=== PATIENT | male | born 1955 | race Caucasian/White ===

== ENCOUNTER 2017-10-08 08:08 | Day surgery (SDC) | payer OTHER ==
[~2017-10-08 08:08] MED LIST: CEFAZOLIN 2 GM/50 ML (PMX) 50 ML IVPB; TRANEXAMIC ACID 1,000 MG in DEXTROSE 5% 100 ML IVPB; TRANEXAMIC ACID 1,000 MG in SOD CHLORIDE 0.9% 100 ML IVPB
[2017-10-08] MEDS: DEXAMETHASONE 1 MG TAB PO (09:00)
[2017-10-08] MEDS: traMADol 50 MG TAB PO (09:00)
[2017-10-08] MEDS ORDERED: NEOSTIGMINE 3 MG/3 ML SYRINGE (10:33)
[2017-10-08] MEDS ORDERED: GLYCOPYRROLATE 0.4 MG INJ (10:33)
[2017-10-08] MEDS ORDERED: ROCURONIUM 50 MG INJ (10:33)
[2017-10-08] MEDS ORDERED: ONDANSETRON 4 MG INJ (10:33)
[2017-10-08] MEDS ORDERED: MIDAZOLAM 1 MG/ML 2 ML INJ (10:33)
[2017-10-08] MEDS ORDERED: CEFAZOLIN 1 GM INJ (10:33)
[2017-10-08] MEDS ORDERED: DEXAMETHASONE 4 MG/ML 1 ML INJ (10:33)
[2017-10-08] MEDS ORDERED: ROPIVACAINE 0.5 % 30 ML VIAL (10:33)
[2017-10-08] MEDS ORDERED: PROPOFOL 20 ML (10:33)
[2017-10-08] MEDS ORDERED: FENTAnyl 50 MCG/ML VIAL (10:33)
[2017-10-08] MEDS ORDERED: LIDOCAINE 1%/EPI 30 ML INJ (11:32)
[2017-10-08] MEDS ORDERED: hydrALAzine 20 MG INJ IV (12:30)
[2017-10-08] MEDS ORDERED: IPRATROPIUM (NEB) 0.5 MG/2.5 ML AMP HHN (12:30)
[2017-10-08] MEDS ORDERED: ALBUTEROL 0.083% (NEB) 2.5 MG/3 ML AMP HHN (12:30)
[2017-10-08] MEDS ORDERED: ONDANSETRON 4 MG INJ IV (12:30)
[2017-10-08] MEDS ORDERED: TRIMETHOBENZAMIDE 100 MG/ML VIAL IM (12:30)
[2017-10-08] MEDS ORDERED: EPHEDrine SULFATE 50 MG/5 ML SYG IV (12:30)
[2017-10-08] MEDS ORDERED: HYDROmorphONE (0.2 MG/ML) 10ML SYG IV ×3 (12:30)
[2017-10-08] MEDS ORDERED: DIPHENHYDRAMINE 50 MG INJ IV (12:30)
[2017-10-08] MEDS ORDERED: MEPERIDINE 25 MG INJ IV (12:30)
[2017-10-08] MEDS ORDERED: FENTAnyl 50 MCG/ML VIAL IV ×3 (12:30)
[2017-10-08] MEDS ORDERED: MIDAZOLAM 1 MG/ML 2 ML INJ IV (12:30)
[2017-10-08] MEDS ORDERED: LABETALOL HCL 20MG INJ IV (12:30)
[2017-10-08] MEDS ORDERED: OXYCODONE/ACETAMINOPHEN (5/325) TAB PO ×2 (12:30)
[2017-10-08] MEDS ORDERED: SUGAMMADEX SODIUM 200 MG/2 ML VIAL IV (12:48)
== END 2017-10-08 14:45 | disposition home or self-care (01) ==
LOC: SDS 08:08
DX: M13.811 Other specified arthritis, right shoulder (principal); M25.811 Other specified joint disorders, right shoulder; M75.101 Unspecified rotator cuff tear or rupture of right shoulder, not specified as traumatic; S46.211D Strain of muscle, fascia and tendon of other parts of biceps, right arm, subsequent encounter; X58.XXXD Exposure to other specified factors, subsequent encounter
CPT/HCPCS: 29824; 93005